=== PATIENT | female | born 1970 | race Caucasian/White ===

== ENCOUNTER 2016-11-03 05:51 | Day surgery (SDC) | payer OTHER ==
[~2016-11-03] VITALS: Ht 165.1 cm; Wt 79.5 kg
[~2016-11-03 05:51] MED LIST: ATIVAN1 MG PO; DEXILANT30 MG PO; HYDROMORPHONE HC4 MG PO; IBUPROFEN800 MG PO; NOHOMEMEDS; PARAGARD T 3801 EAC1 IY; PREVACID30 MG PO; PROTONIX40 MG PO; PROVIGIL200 MG PO; PROZAC40 MG PO; SYNTHROID100 MCG PO; SYNTHROID50 MCG PO; TOPAMAX200 MG PO; TYLENOL EXTRA500 MG PO
[2016-11-03 07:05] VITALS: BP 118/77
[2016-11-03 07:11] LABS: ALKALINE PHOSPHATASE 41 IU/L (3-129); ANION GAP 7 MEQ/L (2-14); CHLORIDE 107 MEQ/L (99-109); GFR ESTIMATE (CALCULATED) > 59 mL/min/; GLUCOSE 141 mg/dL (70-99); POTASSIUM 3.8 MEQ/L (3.7-5.4); SAMPLE HEMOLYSIS CHECK 0; SAMPLE ICTERIC CHECK 0; SAMPLE LIPEMIA CHECK 0; SODIUM 138 MEQ/L (136-147); TOTAL BILIRUBIN 0.2 MG/DL (0.0-1.0); UREA NITROGEN (BUN) 11 mg/dL (9-23)
[2016-11-03 07:53] LABS: METH RESISTANT S AUREUS PCR NEGATIVE (NEGATIVE); PROBE CHECK PASS; SPECIMEN PROCESSING CONTROL PASS
[2016-11-03 13:09] VITALS: BP 116/72
[2016-11-03 16:01] VITALS: BP 126/83
[2016-11-03 19:11] VITALS: BP 122/70
[2016-11-03 23:05] VITALS: BP 140/90
[2016-11-04 02:40] VITALS: BP 119/81
[2016-11-04 03:51] VITALS: BP 130/87
[2016-11-04 07:05] VITALS: BP 125/76
[2016-11-04 08:31] VITALS: BP 126/78
[2016-11-04 08:33] LABS: EOSINOPHIL (%) 0 % (0-5); HEMATOCRIT 36.1 % (36.0-46.0); IMMATURE GRANULOCYTE (%) 0.2 % (0.0-0.7); IMMATURE GRANULOCYTE COUNT 0.1 K/uL; LYMPHOCYTE COUNT 0.8 K/uL (1.0-2.8); MCH 29.1 PG (29.0-34.0); MCHC 32.7 G/DL (30.0-36.0); MCV 89.1 FL (83-99); MEAN PLAT.VOLUME 9.1 uM^3 (9.5-12.4); MONOCYTE (%) 12.5 % (3-12); MONOCYTE COUNT 0.8 K/uL (0-0.8); NEUTROPHIL (%) 73.8 % (45-76); NEUTROPHIL COUNT 4.5 K/uL (1.8-6.4); PLATELET COUNT 260 K/uL (156-360); RBC DIS.WIDTH-CV 12.9 % (11.8-14.6); RBC DIS.WIDTH-SD 41.3 % (39-53); RED BLOOD COUNT 4.05 M/uL (3.80-5.20)
[2016-11-04 08:41] LABS: ANION GAP 8 MEQ/L (2-14); CHLORIDE 111 MEQ/L (99-109); GFR ESTIMATE (CALCULATED) > 59 mL/min/; SAMPLE HEMOLYSIS CHECK 0; SAMPLE ICTERIC CHECK 0; SAMPLE LIPEMIA CHECK 0; SODIUM 140 MEQ/L (136-147); UREA NITROGEN (BUN) 5 mg/dL (9-23)
[2016-11-04 08:42] LABS: GLUCOSE 100 mg/dL (70-99)
== END 2016-11-04 10:54 | disposition home or self-care (01) ==
LOC: SDC 05:51 → 2SOUTH 09:48 → 2EAST 12:54 → SDC 13:05 → 2EAST 11-04 10:54
PROVIDERS: Obstetrics & Gynecology Gynecology
DX: N92.1 Excessive and frequent menstruation with irregular cycle (principal); N80.0 Endometriosis of uterus; N72 Inflammatory disease of cervix uteri; D25.9 Leiomyoma of uterus, unspecified; N94.6 Dysmenorrhea, unspecified; E03.9 Hypothyroidism, unspecified; K21.9 Gastro-esophageal reflux disease without esophagitis
CPT/HCPCS: 80048; 80053; 85025; 87086; 87641; 88307; G0378; J0131; J0330; J0690; J1100; J1170; J1644; J1885; J2175; J2250; J2270; J2405; J2765; J3010; J7120

== ENCOUNTER 2017-04-08 19:57 | Inpatient (IN) | payer OTHER ==
[~2017-04-08] VITALS: Ht 165.1 cm; Wt 84.1 kg
[2017-04-08 20:43] LABS: HEMATOCRIT 39.5 % (36.0-46.0); MCH 28.5 PG (29.0-34.0); MCHC 33.2 G/DL (30.0-36.0); MCV 86.1 FL (83-99); PLATELET COUNT 226 K/uL (156-360); RBC DIS.WIDTH-CV 12.6 % (11.8-14.6); RBC DIS.WIDTH-SD 39.3 % (39-53); RED BLOOD COUNT 4.59 M/uL (3.80-5.20); WHITE BLOOD COUNT 5.3 K/uL (4.1-10.2)
[2017-04-08 20:53] LABS: CHLORIDE 111 mEq/L (99-109); POTASSIUM 3.5 mEq/L (3.7-5.4); SODIUM 141 mEq/L (136-147)
[2017-04-08 20:55] LABS: GLUCOSE 104 mg/dL (70-99)
[2017-04-08 20:56] LABS: ANION GAP 10 MEQ/L (2-14)
[2017-04-08 20:58] LABS: SERUM ETHYL ALCOHOL 158 mg/dL
[2017-04-08 20:59] LABS: GFR ESTIMATE (CALCULATED) > 59 mL/min/
[2017-04-08 21:00] LABS: UREA NITROGEN (BUN) 9 mg/dL (9-23)
[2017-04-08 21:07] LABS: QUANTITATIVE HCG < 4.0 MIU/ML
[2017-04-08 22:22] LABS: AMPHETAMINE NEGATIVE (500 ng/mL); BARBITURATES NEGATIVE (200 ng/mL); BENZODIAZEPINES PRESUMPTIVE POSITIVE (150 ng/mL); COCAINE NEGATIVE (150 ng/mL); INTERNAL CONTROLS VALID? YES; METHADONE NEGATIVE (200 ng/mL); METHAMPHETAMINE NEGATIVE (500 ng/mL); OPIATES (MORPHINE) PRESUMPTIVE POSITIVE (100 ng/mL); OXYCODONE NEGATIVE (100 ng/mL); PHENCYCLIDINE NEGATIVE (25 ng/mL); PROPOXYPHENE NEGATIVE (300 ng/mL); THC CANNABINOIDS NEGATIVE (50 ng/mL); TRICYCLIC ANTIDEPRESSANTS NEGATIVE (300 ng/mL)
[2017-04-08 22:23] LABS: ADD MEDTOX COMMENT Y
[2017-04-08 22:54] LABS: BENZODIAZEPINES QUANT VALUE 0 NG/ML; BENZODIAZEPINES, URINE SCREEN Negative (200 ng/mL)
[2017-04-09 02:07] VITALS: BP 128/78
[2017-04-09 07:30] VITALS: BP 121/76
[2017-04-09] MEDS ORDERED: SERTRALINE HCL100 MG PO (11:09)
== END 2017-04-09 13:00 | disposition home or self-care (01) | DRG 885 ==
LOC: EME 19:57 → EDOF 23:45 → 1WEST 04-09 01:54
PROVIDERS: Emergency Medicine
DX: F33.9 Major depressive disorder, recurrent, unspecified (principal); R45.851 Suicidal ideations; F10.129 Alcohol abuse with intoxication, unspecified; G47.00 Insomnia, unspecified; G89.29 Other chronic pain; M54.9 Dorsalgia, unspecified; K21.9 Gastro-esophageal reflux disease without esophagitis; Z86.73 Personal history of transient ischemic attack (TIA), and cerebral infarction without residual deficits; Z87.891 Personal history of nicotine dependence
CPT/HCPCS: 80048; 84702; 84999; 85027; 90837; 97165 GO; 99281; 99285; G0480